=== PATIENT | male | born 1965 | race African-American/Black ===

== ENCOUNTER 2018-09-02 08:33 | Emergency (ER) | payer SELFPAY ==
[~2018-09-02] VITALS: Ht 182.9 cm; Wt 104.5 kg
[2018-09-02] MEDS ORDERED: LIDOCAINE 1% 10 ML VIAL INJ ONE (09:30)
[2018-09-02] MEDS ORDERED: CloNIDine HCL 0.2 MG TABLET PO ONE (12:15)
[2018-09-02] MEDS ORDERED: ACETAMINOPHEN 500 MG TABLET PO ONE (13:30)
[2018-09-02 14:03] VITALS: BP 167/100
== END 2018-09-02 14:13 | disposition home or self-care (01) ==
LOC: EMS 08:34
DX: S01.81XA Laceration without foreign body of other part of head, initial encounter (principal); I10 Essential (primary) hypertension; Y00.XXXA Assault by blunt object, initial encounter; Y93.89 Activity, other specified; Y92.89 Other specified places as the place of occurrence of the external cause; Y99.8 Other external cause status
CPT/HCPCS: 12015; 70450; 70480; 99284; J3490

== ENCOUNTER 2018-09-11 09:24 | Emergency (ER) | payer SELFPAY ==
[~2018-09-11] VITALS: Ht 182.9 cm; Wt 111.4 kg
[2018-09-11] MEDS ORDERED: CEPH500 PO (09:31)
[2018-09-11] MEDS ORDERED: CloNIDine HCL 0.1 MG TABLET PO ONE (10:00)
[2018-09-11] MEDS ORDERED: CloNIDine HCL 0.2 MG TABLET PO ONE (10:15)
[2018-09-11 12:21] VITALS: BP 188/122
== END 2018-09-11 12:37 | disposition home or self-care (01) ==
LOC: EMS 09:25
DX: S01.81XD Laceration without foreign body of other part of head, subsequent encounter (principal); I10 Essential (primary) hypertension; W22.8XXD Striking against or struck by other objects, subsequent encounter